=== PATIENT | female | born 2000 | race African-American/Black ===

== ENCOUNTER 2021-08-09 10:33 | Emergency (ER) | payer BC, SELFPAY ==
[2021-08-09 10:47] VITALS: BP 141/84; PULSE 84; RESP 16; TEMP 36.1; O2SAT 99
[2021-08-09 12:07] LABS: Add Urine Microscopic? YES; Appearance Urine Cloudy (Clear); Bacteria Urine Trace /hpf; Bilirubin Urine Negative (Negative); Blood Urine 2+ (Negative); Color Urine Yellow (Yellow); Glucose Urine UA Negative (Negative); Ketones Urine Negative (Negative); Leukocyte Esterase Ur 3+ LEU/UL (Negative); Mucus Urine Heavy /lpf; Nitrate Urine Negative (Negative); Protein Urine 1+ mg/dL (Negative); Specific Grav Ur 1.014 (1.001-1.035); Squamous Epithelial Cell Urine Moderate /hpf (Few); Urobilinogen Urine Negative mg/dL (<2.0); WBC Clumps Urine Present /HPF; WBC Urine >75 /hpf
--- NOTE | 2021-08-09 12:24 | ED.FEMALEGU ---
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 Associated with dysuria. Also reports a painful rash in her genital region. Does report recent unprotected sex. Denies fever, vomiting, or pelvic pain. Related Data Allergies Allergy/AdvReac Type Severity Reaction Status Date / Time No Known Allergies Allergy Verified 08/26/19 15:25 Review of Systems Review of Systems: CONSTITUTIONAL: Denies fever GASTROINTESTINAL: Denies abdominal pain, nausea, vomiting GENITOURINARY: Reports dysuria. Denies hematuria. SKIN: Reports rash All systems reviewed & are unremarkable except as noted in HPI and below PMFSH Past Medical History Medical History (Updated 08/09/21 @ 13:31 by Adele Guevara PA-C) No active medical problems Social History Social History (Updated 08/09/21 @ 12:26 by Adele Guevara PA-C) Substance use: never Gender identity (if verbalized by the patient): Female Exam Narrative: GENERAL: Well-appearing, well-nourished, and in no acute distress. HEAD: Normocephalic, atraumatic. EYES: EOMI. EXTREMITIES: Normal range of motion. No edema. SKIN: Warm, dry, no rash. NEURO: No focal deficits. Alert and oriented x3. PSYCH: Normal mood and affect PELVIC: Painful ulcerations on an erythematous base present on the left labia majora. Yellow/white discharge from the cervical os. No CMT Course Vital Signs Vital signs: Vital Signs Temperature 97 F L 08/09/21 10:47 Pulse Rate 84 08/09/21 10:47 Respiratory Rate 16 08/09/21 10:47 Blood Pressure 141/84 H 08/09/21 10:47 Pulse Oximetry 99 08/09/21 10:47 Temperature 97 F L 08/09/21 10:47 Pulse Rate 84 08/09/21 10:47 Respiratory Rate 16 08/09/21 10:47 Blood Pressure 141/84 H 08/09/21 10:47 Pulse Oximetry 99 08/09/21 10:47 MDM - Female Genitourinary MDM Narrative Medical decision making narrative: Patient presents to the emergency department for abnormal vaginal discharge present over the last couple of days. Patient is afebrile and nontoxic-appearing. She denies any fever, flank pain, or pelvic pain. UA with greater than 75 white blood cells and 3+ leuk esterase. This will be sent for culture. Chlamydia, gonorrhea and genital culture sent. Bedside test is negative. Trichomonas is negative. HSV culture was also sent for genital lesions that are consistent with herpes flare. Patient will be started on antiviral. Will be presumptively treated for chlamydia and gonorrhea. She was instructed to follow-up with gynecology for further management and results of testing. She was given warnings to return to the ER Lab Data Attestation: I reviewed the patient's lab results. Labs: Lab Results 08/09/21 08/09/21 08/09/21 Range/Units 11:44 12:22 12:22 Urine Color Yellow (Yellow) Urine Appearance Cloudy H (Clear) Urine pH 6.0 (5.0-9.0) Ur Specific [place] 1.014 (1.001-1.035) Urine Protein 1+ H (Negative) mg/dL Urine Glucose (UA) Negative (Negative) mg/dL Urine Ketones Negative (Negative) mg/dL Ur Blood (Man) 2+ H (Negative) Urine Nitrate Negative (Negative) Urine Bilirubin Negative (Negative) Urine Urobilinogen Negative (<2.0) mg/dL Leukocyte Esterase Rfl 3+ H (Negative) MEAGAN/UL Urine RBC 6-10 H (0-2) /hpf Urine WBC >75 H /hpf Urine WBC Clumps Present H (None) /HPF Ur Squamous Epith Cells Moderate H (Few) /hpf Urine Bacteria Trace /hpf Urine Mucus Heavy H /lpf C.trachomatis RNA (TMA) Pending Herpes Simplex Culture N.gonorrhoeae RNA (TMA) Pending Trichomonas Direct ID Negative (Negative)
[2021-08-09] MEDS: cefTRIAXone 1 GM VIAL 0.5 GM IM (13:30)
[2021-08-09] MEDS: LIDOCAINE HCL 1% LOCAL INJ 20 ML VIAL (13:31)
[2021-08-09 13:50] VITALS: BP 134/93; PULSE 80; RESP 12; O2SAT 98
== END 2021-08-09 13:51 | disposition home or self-care (01) ==
PROVIDERS: Physician Assistant; Emergency Provider Emergency Medicine
DX: N39.0 Urinary tract infection, site not specified (principal); Z11.3 Encounter for screening for infections with a predominantly sexual mode of transmission
CPT/HCPCS: 81001; 81025; 87070; 87077; 87086; 87255; 87491; 87591; 87808; 96372; 99284; J0696

== ENCOUNTER 2021-08-12 11:29 | Emergency (ER) | payer BC, SELFPAY ==
[2021-08-12 11:46] VITALS: BP 154/78; PULSE 70; RESP 16; TEMP 36.2; O2SAT 100
--- NOTE | 2021-08-12 12:12 | PC.NURSE ---
Patient states she is going to wait and come back tomorrow to be seen because she has to go to work today. Patient educated to return to ED if symptoms continue or worsen.
== END 2021-08-12 12:20 | disposition left against medical advice (07) ==
DX: N76.0 Acute vaginitis (principal)
CPT/HCPCS: 99199

== ENCOUNTER 2024-10-12 14:25 | Emergency (ER) | payer BC, SELFPAY ==
--- NOTE | ~2024-10-12 | XR_ITS ---
EXAMINATION: XR chest 2V DATE: 10/12/2024 16:14 INDICATION: Hypertension. TECHNIQUE: Frontal and lateral views of the chest were obtained. COMPARISON: None. FINDINGS: There is no pneumonia, pleural effusion, or pneumothorax. The heart size is normal. IMPRESSION: 1. No acute cardiopulmonary disease. Reviewed, dictated and finalized at location A. TABLE VENDOR
[2024-10-12 14:32] VITALS: BP 149/110; PULSE 83; RESP 18; TEMP 36.3; O2SAT 100
--- OUTSIDE RECORDS SUMMARY | 2024-10-12 15:14 | XMS_ITS | Clinical Summary ---
Author Organization [facility] Address [address] [place] [address] Care Team Providers Care Rn Shift Mgr Name Role Phone No, Physician Primary Care Provider [phone] Allergies No known active allergies Medications famotidine (PEPCID) 40 mg tablet Take 1 tablet (40 mg total) by mouth nightly as needed for heartburn 20 tablet 4 05/31/20 25 Active Social History Tobacco Use Types Packs/Day Years Used Date Smoking Tobacco: Never Assessed Personal Safety Answer Date Recorded Have you ever been in or are you currently in a harmful physical or emotional relationship or is someone making you feel afraid or unsafe? Denies 05/31/2024 Comments No Sex and Gender Information Value Date Recorded Sex Assigned at Not on file Legal Sex Female 2:37 AM CDT Gender Identity Not on file Sexual Orientation Not on file Last Filed Vital Signs Vital Sign Reading Time Taken Comments Blood Pressure 132/99 05/31/2024 4:30 AM CDT Pulse 66 05/31/2024 5:15 AM CDT Temperature 36.6 C (97.9 F) 05/31/2024 2:55 AM CDT Respiratory Rate 18 05/31/2024 5:15 AM CDT Oxygen Saturation 99% 05/31/2024 5:15 AM CDT Inhaled Oxygen Concentration - - Weight - - Height - - Body Mass Index - - Plan of Treatment Health Maintenance Due Date Last Done Comments Cervical Cancer Screening 1998 Depression Screening 1998 Hepatitis C Screening 1998 Varicella Vaccines (1 of 2 - 13+ 2-dose series) 08/09/2013 Regular Well Visit/Exam 18-64 2016 DTaP/Tdap/Td Vaccine (4 - Td or Tdap) 04/29/2020 04/29/2010, 04/25/2004, 11/08/2002 Influenza Vaccine (#1) 2024 0, 06/29/2018, 06/30/2016, Additional history exists HPV Vaccines Completed 05/19/2016, 11/0 01/2013, 05/11/2013 Pneumococcal vaccine <65 Aged Out No longer eligible based on patient's age to complete this topic Insurance [facility] OOS Care Teams Rn Shift Mgr Relationship Specialty Start Date End Date No, Physician PCP - General 05/31/24
--- OUTSIDE RECORDS SUMMARY | 2024-10-12 15:14 | XMS_ITS | Referral Summary ---
Author Organization [facility] Address [address] [place] [address] Care Team Providers Care Team Automobile Assembler Name Role Phone No, Physician Primary Care Provider [phone] Allergies No known active allergies Medications famotidine [...] Mass Index - - Plan of Treatment Not on file Insurance [employer] OOS Member Subscriber Plan / Payer (Ef fective 2022-Present) Name:Amanda Anderson Relation to Subscriber:Child Name:Tang Andersondiamond Kerr Date of :1970 Address: [address] [place] [address] Payer ID:[id number] (NAIC) Type: ALLIANCE Address: [facility] [address] [place] [id number] Care Teams Team Automobile Assembler Relationship Specialty Start Date End Date No, Physician PCP - General 05/31/24
--- OUTSIDE RECORDS SUMMARY | 2024-10-12 15:14 | XMS_ITS | Referral Summary ---
Author Organization [facility] Address [address] [place] [address] Care Team Providers Care Shake Loader Name Role Phone Unavailable Primary Care Provider Unavailabl e Source Comments [facility],non-owned Affiliates and Associated Physician Practices is amultiple site organization consisting of ambulatory clinics and hospital sitesin [place], [place], [place] and [place]. This disclosure is being madepursuant to the Care Everywhere program and may not contain all information available regarding this patient. Last updated 18.[facility] [employer] Allergies No known active allergies Immunizations Name Administration Dates Next Due INFLUENZA VACCINE, QUADR. (F LUZONE; FLULAVAL; FLUARIX; AFLURIA QUADRIVALENT; 6MO+), 0.5 ML (IIV4) 06/22/2020 Social History Tobacco Use Types Packs/Day Years Used Date Smoking Tobacco: Never Assessed Sex and Gender Information Value Date Recorded Sex Assigned at Not on file Gender Identity Not on file Sexual Orientation Not on file Plan of Treatment Not on file
--- OUTSIDE RECORDS SUMMARY | 2024-10-12 15:14 | XMS_ITS | Clinical Summary ---
Author Organization [facility] Address [address] [place] [address] Care Team Providers Care Plastic Molding Operator Name Role Phone Unavailable Primary Care Provider Unavailabl e Source Comments [facility],non-owned Affiliates and Associated Physician Practices is amultiple site organization consisting of ambulatory clinics and hospital sitesin [place], [place], [place] and [place]. This disclosure is being madepursuant to the Care Everywhere program and may not contain all information available regarding this patient. Last updated 18.[facility] [employer] Allergies No known active allergies Immunizations Name [...] Orientation Not on file Plan of Treatment Health Maintenance Due Date Last Done Comments PAP SMEAR 1998 HIV SCREENING 2013 HPV VACCINE (1 - 3-dose series) 2013 CHLAMYDIA/GONORRHEA SCREENING 2014 HEPATITIS C SCREENING 10/31/2016 DTAP/TDAP/TD VACCINES (1 - Tdap) 2017 HEPATITIS B VACCINE (1 of 3 - 19+ 3-dose series) 2017 COVID-19 VACCINE ( - 2023-2 5 season) 2024 INFLUENZA VACCINE (#1) 2024 06/22/2020 DEPRESSION SCREENING 09/07/2024 ZOSTER VACCINE (1 of 2) 2048 HIB VACCINE Aged Out No longer eligi ble based on patient's age to complete this topic MENINGOCOCCAL (Group B) VACCINE Aged Out No longer eligible based on patient's age to complete this topic MENINGOCOCCAL VACCINE Aged Out No leni shy eligible based on patient's age to complete this topic PNEUMOCOCCAL VACCINE Aged Out No long er eligible based on patient's age to complete this topic
--- OUTSIDE RECORDS SUMMARY | 2024-10-12 15:14 | XMS_ITS | Clinical Summary ---
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 Gender Identity Not on file Sexual Orientation Not on file Plan of Treatment Health Maintenance Due Date Last Done Comments Hepatitis C Virus (HCV) Screening 1998 Hepatitis B Immunization (2 of 3 - 3-dose series) 05/23/2004 04/25/2004 Pap Smear 11/06/2019 Influenza Immunization (#1) 05/08/202406/07, 06/29/2018, 06/30/2016, Additional history exists SARS-COV-2 Immunization ( season) 2024 Respiratory Syncytial Virus (RSV) Immunization (Adult) (1 - 1-dose 75+ series) 2073 DTaP/Tdap/Td Immunization Discontinued 2009, 04/25/2004, 11/08/2002 TdaP Immunization Completed 04/29/2010 Human Papillomavirus (HPV) Immunization Completed 05/19/2016, 07/12/2013, 05/11/2013 Meningococcal Immunization (ACWY) Completed 05/19/2016 Pneumococcal Immunization Combined Aged Out No longer eligible based on patient's age to complete this topic Rotavirus Immunization Aged Out No lo nger eligible based on patient's age to complete this topic Insurance [employer] on file
--- OUTSIDE RECORDS SUMMARY | 2024-10-12 15:14 | XMS_ITS | Patient Health Summary ---
Author Organization [facility] Address [address] [place] [address] Care Team Providers Care Last Puller Name Role Phone Unavailable Primary Care Provider Unavailabl e Note from [facility],non-owned Affiliates and Associated Physician Practices is amultiple site organization consisting of ambulatory clinics and hospital sitesin [place], [place], [place] and [place]. This disclosure is being madepursuant to the Care Everywhere program and may not contain all informatio navailable regarding this patient. Last updated 18.[facility] Allergies No known active allergies Immunizations * INFLUENZA VACCINE, QUADR. (FLUZONE; FLULAVAL; FLUARIX; AFLURIA QUADRIVALENT; 6MO+), 0.5 ML (IIV4)(Given 06/22/2020) Social History Tobacco Use Types Packs/Day Years Used Date Smoking Tobacco: Never Assessed Sex and Gender Information Value Date Recorded Sex Assigned at Not on file Gender Identity Not on file Sexual Orientation Not on file
--- NOTE | 2024-10-12 15:21 | ED_ITS ---
HPI - Chest Pain General Chief Complaint: Recheck/Abnormal Lab/Rx Stated Complaint: sent by pcp Time Seen by Provider: 10/12/24 15:15 Focused HPI: Patient is a 23-year-old female who presents to the ER with concerns of high blood pressure and left shoulder/L neck tingling. She reports she went to her primary care provider who advised her to come to the ER for evaluation. Patient endorses an intermittent headache throughout the past couple of months. She denies any chest pain, shortness of breath, or lower extremity edema. Patient denies any medical history relevant to this ER visit. GENERAL: Well-appearing, well-nourished, and in no acute distress. HEAD: Normocephalic, atraumatic. CHEST: Clear to auscultation. ?No respiratory distress. HEART: Regular rate and rhythm.? NEURO: ?Alert and oriented x3. Patient screened in triage and initial orders placed.? ?Additional care and disposition to be based upon?diagnostic testing and treatment. Related Data Allergies Allergy/AdvReac Type Severity Reaction Status Date / Time No Known Allergies Allergy Verified 08/26/19 15:25 [facility] Past Medical History Medical History (Updated 10/14/24 @ 00:01 by Beverly Ron) No active medical problems Social History Social History (Updated 08/09/21 @ 12:26 by Adele Guevara PA-C) Substance use: never Gender identity (if verbalized by the patient): Female Course Vital Signs Vital signs: Vital Signs Temperature 36.3 C L 10/12/24 14:32 Pulse Rate 83 10/12/24 14:32 Respiratory Rate 18 10/12/24 14:32 Blood Pressure 149/110 H 10/12/24 14:32 Pulse Oximetry 100 10/12/24 14:32 Temperature 36.3 C L 10/12/24 14:32 Pulse Rate 83 10/12/24 14:32 Respiratory Rate 18 10/12/24 14:32 Blood Pressure 149/110 H 10/12/24 14:32 Pulse Oximetry 100 10/12/24 14:32 Discharge Plan Discharge Clinical Impression: Hypertension Patient Disposition: Elopement After Seen by Prov Condition: Stable Patient Language: Andorran Prescriptions: No Action ondansetron 4 mg tablet,disintegrating 4 mg PO Q6H PRN (Reason: nausea and vomiting) Qty: 7 0RF valacyclovir 1 gram tablet 1,000 mg PO Q12H 7 Days Qty: 14 0RF doxycycline hyclate 100 mg capsule 100 mg PO BID 7 Days Qty: 14 0RF Follow-up/Referrals: PHYSICIAN,REPACKER [Primary Care Provider] - Time of Disposition: 18:07
--- NOTE | 2024-10-12 17:19 | PC.NURSE ---
Pt left @ 1715 in NAD.
--- OUTSIDE RECORDS SUMMARY | 2024-10-12 17:32 | XMS_ITS | Patient Health Summary ---
Author Organization [facility] Address [address] [place] [address] Care Team Providers Care Natural Sciences Manager Name Role Phone Unavailable Primary Care Provider Unavailabl e Note from [facility],non-owned Affiliates and Associated Physician Practices is amultiple site organization consisting of ambulatory clinics and hospital sitesin [place], [place], [place] and [place]. This disclosure is being madepursuant to the Care Everywhere program and may not contain all informatio navailable regarding this patient. Last updated 18.[facility] Allergies No known active allergies Immunizations * INFLUENZA VACCINE, QUADR. (FLUZONE; FLULAVAL; FLUARIX; AFLURIA QUADRIVALENT; 6MO+), 0.5 ML (IIV4)(Given 06/22/2020) Social History Tobacco Use Types Packs/Day Years Used Date Smoking Tobacco: Never Assessed Sex and Gender Information Value Date Recorded Sex Assigned at Not on file Gender Identity Not on file Sexual Orientation Not on file
--- OUTSIDE RECORDS SUMMARY | 2024-10-12 17:32 | XMS_ITS | Clinical Summary ---
Author Organization [facility] Address [address] [place] [address] Care Team Providers Care Ham Sawyer Name Role Phone Unavailable Primary Care Provider Unavailabl e Source Comments [facility],non-owned Affiliates and Associated Physician Practices is amultiple site organization consisting of ambulatory clinics and hospital sitesin [place], [place], [place] and [place]. This disclosure is being madepursuant to the Care Everywhere program and may not contain all information available regarding this patient. Last updated 18.[facility] [employer] Allergies No known active allergies Immunizations Name [...]
--- OUTSIDE RECORDS SUMMARY | 2024-10-12 17:32 | XMS_ITS | Clinical Summary ---
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
--- OUTSIDE RECORDS SUMMARY | 2024-10-12 17:32 | XMS_ITS | Clinical Summary ---
Author Organization [facility] Address [address] [place] [address] Care Team Providers Care Supervisor Laboratory Name Role Phone No, Physician Primary Care Provider [phone] Allergies No known active allergies Medications famotidine [...] patient's age to complete this topic Insurance [facility] [employer] OOS Care Teams Supervisor Laboratory Relationship Specialty Start Date End Date No, Physician PCP - General 05/31/24
--- OUTSIDE RECORDS SUMMARY | 2024-10-12 17:32 | XMS_ITS | Referral Summary ---
Author Organization [facility] Address [address] [place] [address] Care Team Providers Care Home Comfort Advisor Name Role Phone No, Physician Primary Care Provider [phone] Allergies No known active allergies Medications famotidine [...] Name:Tang Andersondiamond Kerr Date of :1972 Address: [address] [place] [address] Payer ID:[id number] (NAIC) Type: ALLIANCE Address: [facility] [id number] [place] [phone] Care Teams Home Comfort Advisor Relationship Specialty Start Date End Date No, Physician PCP - General 05/31/24
--- OUTSIDE RECORDS SUMMARY | 2024-10-12 17:32 | XMS_ITS | Referral Summary ---
Author Organization [facility] Address [address] [place] [address] Care Team Providers Care Vacuum Extractor Operator Name Role Phone Unavailable Primary Care Provider Unavailabl e Source Comments [facility],non-owned Affiliates and Associated Physician Practices is amultiple site organization consisting of ambulatory clinics and hospital sitesin [place], [place], [place] and [place]. This disclosure is being madepursuant to the Care Everywhere program and may not contain all information available regarding this patient. Last updated 18.[facility] [employer] Allergies No known active allergies Immunizations Name [...]
== END 2024-10-12 17:15 | disposition left against medical advice (07) ==
PROVIDERS: Emergency Provider Registered Nurse
DX: I10 Essential (primary) hypertension (principal)
CPT/HCPCS: 71046; 99283